=== PATIENT | female | born 1980 | race Caucasian/White ===

== ENCOUNTER 2016-12-20 11:23 | Emergency (ER) | payer OTHER ==
[~2016-12-20] VITALS: Ht 170.2 cm; Wt 104.3 kg
[~2016-12-20 11:23] MED LIST: ENERGY PO; LEVOTHYROXINE200 MC1 PO; OXYCODONE HCL5 MG PO; RITALIN20 MG PO; [UNRECOGNIZED DRUG - OTHER] PO; [UNRECOGNIZED DRUG - OTHER] PO
[2016-12-20 12:22] LABS: HEMATOCRIT 40.3 % (36.0-46.0); MCH 29.3 PG (29.0-34.0); MCHC 33.3 G/DL (30.0-36.0); MEAN PLAT.VOLUME 10.5 uM^3 (9.5-12.4); PLATELET COUNT 191 K/uL (156-360); RBC DIS.WIDTH-CV 13.5 % (11.8-14.6); RBC DIS.WIDTH-SD 42.5 % (39-53); RED BLOOD COUNT 4.58 M/uL (3.80-5.20); WHITE BLOOD COUNT 7.8 K/uL (4.1-10.2)
[2016-12-20 12:35] LABS: CHLORIDE 107 mEq/L (99-109); POTASSIUM 3.4 mEq/L (3.7-5.4); SODIUM 139 mEq/L (136-147)
[2016-12-20 12:37] LABS: GLUCOSE 113 mg/dL (70-99)
[2016-12-20 12:39] LABS: ANION GAP 10 MEQ/L (2-14); TOTAL BILIRUBIN 0.7 mg/dL (0.0-1.0)
[2016-12-20 12:41] LABS: ALKALINE PHOSPHATASE 62 IU/L (3-129); GFR ESTIMATE (CALCULATED) > 59 mL/min/
[2016-12-20 12:42] LABS: UREA NITROGEN (BUN) 16 mg/dL (9-23)
[2016-12-20 12:44] LABS: LIPASE 10 U/L (1.0-51.0)
[2016-12-20 12:51] LABS: QUANTITATIVE HCG < 4.0 MIU/ML
[2016-12-20 13:56] LABS: ADD MIUA? YES; BILIRUBIN NEGATIVE; BLOOD NEGATIVE; COLOR YELLOW ((YELLOW)); GLUCOSE (STRIP) NEGATIVE; KETONES 5; LEUKOCYTES NEGATIVE; NITRITE NEGATIVE; PROTEIN (STRIP) 30; SPECIFIC GRAVITY 1.033 (1.000-1.030); UROBILINOGEN 0.2 MG/DL (0.2-1.0)
[2016-12-20 14:06] LABS: BACTERIA NONE SEEN /HPF; EPITHELIAL CELLS 1+ /HPF; MUCUS TRACE /LPF; RED BLOOD CELLS 0-5 /HPF (0-5); UCUL ADDED? NO; WHITE BLOOD CELLS 0-5 /HPF (0-5)
[2016-12-20] MEDS ORDERED: ZOFRAN ODT4 MG PO (14:49)
[2016-12-20] MEDS ORDERED: BENTYL10 MG PO (14:49)
[2016-12-20 15:02] LABS: INFLUENZA A VIRAL ANTIGEN NEGATIVE; INFLUENZA B VIRAL ANTIGEN NEGATIVE
[2016-12-20 15:17] VITALS: BP 106/62
== END 2016-12-20 15:20 | disposition home or self-care (01) ==
LOC: EME 11:23
PROVIDERS: Physician Assistant
DX: K52.9 Noninfective gastroenteritis and colitis, unspecified (principal); Z87.442 Personal history of urinary calculi
CPT/HCPCS: 76705; 80053; 81003; 83690; 84702; 85027; 87502; 99281; 99285; J3010; J7120

== ENCOUNTER 2017-03-21 19:17 | Emergency (ER) | payer OTHER ==
[~2017-03-21] VITALS: Ht 170.2 cm; Wt 104.0 kg
[~2017-03-21 19:17] MED LIST changes: +BENTYL10 MG PO; +ZOFRAN ODT4 MG PO
[2017-03-21] MEDS ORDERED: VALIUM5 MG PO (20:20)
[2017-03-21] MEDS ORDERED: LIDODERM 5% P1 PATCH TD (20:20)
[2017-03-21] MEDS ORDERED: PREDNISONE20 MG PO (20:20)
[2017-03-21 21:23] VITALS: BP 126/78
== END 2017-03-21 21:24 | disposition home or self-care (01) ==
LOC: EME 19:17
DX: M51.34 Other intervertebral disc degeneration, thoracic region (principal); M62.830 Muscle spasm of back; E89.0 Postprocedural hypothyroidism; Z88.0 Allergy status to penicillin
CPT/HCPCS: 72070; 99281; 99283; J7512

== ENCOUNTER 2017-07-09 12:26 | Emergency (ER) | payer OTHER ==
[~2017-07-09] VITALS: Ht 170.2 cm; Wt 109.1 kg
[~2017-07-09 12:26] MED LIST changes: +LIDODERM 5% P1 PATCH TD; +PREDNISONE20 MG PO; +VALIUM5 MG PO
[2017-07-09 14:36] LABS: HEMATOCRIT 39.9 % (36.0-46.0); MCH 29.1 PG (29.0-34.0); MCHC 33.1 G/DL (30.0-36.0); MCV 87.9 FL (83-99); MEAN PLAT.VOLUME 10.6 uM^3 (9.5-12.4); PLATELET COUNT 180 K/uL (156-360); RBC DIS.WIDTH-CV 12.3 % (11.8-14.6); RBC DIS.WIDTH-SD 39.6 % (39-53); RED BLOOD COUNT 4.54 M/uL (3.80-5.20)
[2017-07-09 14:42] LABS: D-DIMER ELISA < 150.00 ng/mLDDU (<230)
[2017-07-09 14:51] LABS: CHLORIDE 108 mEq/L (99-109); POTASSIUM 3.9 mEq/L (3.7-5.4); SODIUM 141 mEq/L (136-147)
[2017-07-09 14:52] LABS: GLUCOSE 82 mg/dL (70-99)
[2017-07-09 14:54] LABS: ANION GAP 15 MEQ/L (2-14)
[2017-07-09 14:56] LABS: GFR ESTIMATE (CALCULATED) > 59 mL/min/; TROP-I INTERPRETATION NEGATIVE; TROPONIN-I < 0.01 ng/mL (0.0-0.30)
[2017-07-09 14:57] LABS: UREA NITROGEN (BUN) 17 mg/dL (9-23)
[2017-07-09 15:04] LABS: QUANTITATIVE HCG < 4.0 MIU/ML
[2017-07-09 17:01] VITALS: BP 128/72
== END 2017-07-09 17:01 | disposition home or self-care (01) ==
LOC: EME 12:26
PROVIDERS: Emergency Medicine
DX: R07.9 Chest pain, unspecified (principal); Z85.850 Personal history of malignant neoplasm of thyroid; E89.0 Postprocedural hypothyroidism; Z88.0 Allergy status to penicillin
CPT/HCPCS: 71010; 80048; 84484; 84702; 85027; 85379; 93005; 93971; 99281; 99284

== ENCOUNTER 2017-11-16 18:24 | Emergency (ER) | payer OTHER ==
[~2017-11-16] VITALS: Ht 170.2 cm; Wt 105.4 kg
[2017-11-16 19:17] VITALS: BP 130/78
[2017-11-16 19:25] LABS: ALBUMIN 4.2 g/dL (3.2-4.8)
[2017-11-16 19:26] LABS: CHLORIDE 106 mEq/L (99-109); SODIUM 134 mEq/L (136-147)
[2017-11-16 19:28] LABS: GLUCOSE 109 mg/dL (70-99); TOTAL PROTEIN 7.3 g/dL (6.4-8.3)
[2017-11-16 19:30] LABS: TOTAL BILIRUBIN 0.2 mg/dL (0.0-1.0)
[2017-11-16 19:31] LABS: ALKALINE PHOSPHATASE 72 IU/L (3-129)
[2017-11-16 19:32] LABS: CREATININE 0.8 mg/dL (0.6-1.3); GFR ESTIMATE (CALCULATED) > 59 mL/min/
[2017-11-16 19:33] LABS: AST (GOT) 23 IU/L (2-34); DIRECT BILIRUBIN 0.1 mg/dL (0.0-0.3); UREA NITROGEN (BUN) 14 mg/dL (9-23)
[2017-11-16 19:34] LABS: BASOPHIL (%) 0.8 % (0-1); BASOPHIL COUNT 0.1 K/uL (0-0.1); EOSINOPHIL (%) 0.7 % (0-5); HEMATOCRIT 36.7 % (36.0-46.0); HEMOGLOBIN 12.1 G/DL (11.9-15.5); IMMATURE GRANULOCYTE (%) 0.3 % (0.0-0.7); LYMPHOCYTE (%) 22.3 % (15-42); LYMPHOCYTE COUNT 1.4 K/uL (1.0-2.8); MCH 29.2 PG (29.0-34.0); MCV 88.4 FL (83-99); MONOCYTE (%) 7.8 % (3-12); MONOCYTE COUNT 0.5 K/uL (0-0.8); NEUTROPHIL (%) 68.1 % (45-76); NEUTROPHIL COUNT 4.1 K/uL (1.8-6.4); PLATELET COUNT 187 K/uL (156-360); RBC DIS.WIDTH-CV 12.9 % (11.8-14.6); RBC DIS.WIDTH-SD 41.9 % (39-53); RED BLOOD COUNT 4.15 M/uL (3.80-5.20); WHITE BLOOD COUNT 6.1 K/uL (4.1-10.2)
[2017-11-16 19:35] LABS: ALT (GPT) 28 IU/L (3-49)
[2017-11-16 19:41] LABS: QUANTITATIVE HCG < 4.0 MIU/ML
== END 2017-11-16 19:17 | disposition home or self-care (01) ==
LOC: EME 18:24
PROVIDERS: Physician Assistant
DX: Z77.21 Contact with and (suspected) exposure to potentially hazardous body fluids (principal); R56.9 Unspecified convulsions; Z88.1 Allergy status to other antibiotic agents; Z88.6 Allergy status to analgesic agent
CPT/HCPCS: 80048; 80076; 84702; 85025; 99281; 99284